=== PATIENT | female | born 1945 | race Caucasian/White ===

== ENCOUNTER 2018-01-31 07:54 | Inpatient (IN) | payer OTHER, MEDICARE ==
--- NOTE | 2018-01-31 08:01 | PDOC ---
History of Present Illness - General Stated Complaint: Syncope/Near Syncope Time Seen by Provider: 01/31/18 08:00 - History of Present Illness Initial Comments: 72 year old female with PMH of HTN, CVA (residual slowed speech), HLD, and COPD presenting after syncopizing on her bathroom floor this AM. She states that she felt slightly light headed while using the bathroom this AM which was exacerbated when she sat up from the toilet. She took a few steps then felt extremely weak and fell to the floor. She is unsure if she hit her head but denies any headache. She does have bilateral lower extremity weakness for the past year. Denies any recent fevers, chills, nause,a vomitign, diarrhea, or other symptoms. 01/31/18 08:02 Past History - Past Medical History Allergies/Adverse Reactions: Allergies Allergy/AdvReac Type Severity Reaction Status Date / Time No Known Allergies Allergy Verified 01/31/18 08:24 Home Medications: Ambulatory Orders Albuterol Sulfate Inhaler - [Ventolin Hfa Inhaler -] 1 - 2 inh PO QID 01/31/18 Atorvastatin Ca [Lipitor] 20 mg PO HS 01/31/18 Cholecalciferol (Vitamin D3) [Vitamin D3] 1,000 unit PO DAILY 01/31/18 Fluticasone Prop 0.05% Nasal [Flonase -] 1 - 2 spray NS DAILY 01/31/18 Gabapentin [Neurontin -] 100 mg PO Q8H 01/31/18 Metoprolol Tartrate 25 mg PO DAILY 01/31/18 Multivit-Min/FA/Lycopen/Lutein [Centrum Silver Tablet] 1 each PO DAILY 01/31/18 Ranitidine HCl [Zantac] 300 mg PO BID 01/31/18 Review of Systems - Review of Systems Constitutional: No: Chills, Diaphoresis, Fever HEENTM: No: Eye Pain, Blurred Vision, Tearing Respiratory: No: Cough, Orthopnea, Shortness of Breath Cardiac (ROS): Yes: Lightheadedness, Syncope. No: Chest Pain, Edema ABD/GI: No: Constipated, Diarrhea, Nausea, Poor Appetite, Vomiting : No: Burning, Dysuria, Discharge Musculoskeletal: Yes: Back Pain. No: Joint Pain Integumentary: No: Dryness, Erythema, Lesions Neurological: No: Headache, Numbness, Paresthesia Psychiatric: No: Anxiety, Depression Endocrine: No: Flushing, Intolerance to Cold, Intolerance to Heat Hematologic/Lymphatic: No: Anemia, Blood Clots, Easy Bleeding *Physical Exam - Physical Exam General Appearance: Yes: Nourished, Appropriately Dressed. No: Apparent Distress HEENT: positive: EOMI, NANCY, Normal ENT Inspection. negative: Normal Voice ( delayed speech) Neck: positive: Trachea midline, Normal Thyroid, Supple. negative: Tender, Rigid Respiratory/Chest: positive: Lungs Clear, Normal Breath Sounds. negative: Chest Tender, Respiratory Distress, Accessory Muscle Use Cardiovascular: positive: Regular Rhythm, Regular Rate Gastrointestinal/Abdominal: positive: Normal Bowel Sounds, Flat. negative: Tender Lymphatic: negative: Adenopathy, Tenderness Musculoskeletal: positive: Normal Inspection, Vertebral Tenderness (sacral spine tenderness). negative: Decreased Range of Motion Extremity: positive: Normal Capillary Refill, Normal Inspection, Normal Range of Motion. negative: Tender Integumentary: positive: Normal Color, Dry, Warm Neurologic: positive: Fully Oriented, Alert, Normal Mood/Affect, Normal Response. negative: Motor Strength 5/5 (4/5 globally) ED Treatment Course - LABORATORY CBC & Chemistry Diagram: 01/31/18 08:37 01/31/18 08:37 Medical Decision Making - Medical Decision Making 72 year old female with PMH of CVA presenting after an episode of syncope this AM with prodrome of weakness and lightheadedness. Labs WNL, Head CT negative, no focal neurological deficit, and EKG demonstrating rate 93, IN interval 188, QRS 86, QTc 489, normal axis lafb without any prior to compare it to but no ST elevations, signs of brugada, or concerningly lengthened QTc. 01/31/18 09:15 Labs WNL, head CT pending but call placed to Dr. Perkins and he agrees the patient should be admitted for an observational syncope workup. Dr. Hoover signed out patient to hospitalist for further workup. 01/31/18 09:59 *DC/Admit/Observation/Transfer Diagnosis at time of Disposition: Syncope and collapse - Discharge Dispostion Decision to Admit order: Yes - Referrals - Patient Instructions - Post Discharge Activity
[2018-01-31 08:24] VITALS: BMI 28.3
[2018-01-31] MEDS ORDERED: SODIUM CHLORIDE 0.9% 500 ML INFUS.BAG IV ONE (08:32)
[2018-01-31 08:45] LABS: BASO % 0.2 % (0-2.0); EOS % 0.6 % (0-4.5); HEMATOCRIT 40.5 % (32.4-45.2); HEMOGLOBIN 14.3 GM/dL (10.7-15.3); LYMPH % 13.9 % (8-40); MCH 31.9 pg (25.7-33.7); MCHC 35.3 g/dl (32.0-36.0); MEAN CELL VOLUME 90.4 fl (80-96); MEAN PLT VOLUME 8.6 fl (7.5-11.1); MONO % 8.8 % (3.8-10.2); NEUT % 76.5 % (42.8-82.8); PLATELET COUNT 244 K/MM3 (134-434); RBC 4.49 M/mm3 (3.60-5.2); RDW 13.4 % (11.6-15.6); WHITE BLOOD COUNT 8.7 K/mm3 (4.0-10.0)
[2018-01-31 09:16] LABS: ALBUMIN 4.2 g/dl (3.4-5.0); ALK PHOS 86 U/L (45-117); ANION GAP 11 MMOL/L (8-16); BILIRUBIN,TOTAL 0.9 mg/dL (0.2-1); BLOOD UREA NITROGEN 13 mg/dL (7-18); CALCIUM 9.2 mg/dL (8.5-10.1); CHLORIDE 104 mmol/L (98-107); CO2 23 mmol/L (21-32); CREATININE 0.7 mg/dL (0.55-1.3); GLUCOSE,RANDOM 103 mg/dL (74-106); MAGNESIUM 1.9 mg/dL (1.8-2.4); PHOSPHOROUS 2.4 mg/dL (2.5-4.9); POTASSIUM 3.8 mmol/L (3.5-5.1); SGOT/AST 26 U/L (15-37); SGPT/ALT 44 U/L (13-61); SODIUM 138 mmol/L (136-145)
[2018-01-31 09:31] LABS: INR 1.13 (0.83-1.09); PROTHROMBIN TIME (PATIENT) 13.3 SEC (9.7-13.0)
--- NOTE | 2018-01-31 10:01 | PDOC ---
Attending Attestation - Resident Resident Name: Kiersten Rodriguez - ED Attending Attestation I have performed the following: I have examined & evaluated the patient, The case was reviewed & discussed with the resident, I agree w/resident's findings & plan - HPI HPI: 01/31/18 09:59 [place] 72 year old female with PMH of HTN, HLD, GERD, CVA (residual slowed speech and LE weakness), presenting after waking up on the floor of her bathroom this AM, where she felt lightheadedness while going to the bathroom on the toilet. + LOC, syncope. no cp or sob, f/c, respiratory or GI sx or urinary sx. - Physicial Exam PE: 01/31/18 09:58 NAD, well appearing, PERRL, EOMI, MMM, nl conjunctiva, anicteric; neck supple. no midline C spine tenderness, ROM intact. lungs clear, RRR, abdomen soft nontender. +sacral TTP, no stepoffs. ROM intact. JONES x4, no focal neuro deficits. 5/5 digital field service technician and prox/distal strength in all extrem, SILT. +chronic dysarthria. No peripheral edema. normal color for ethnicity, WWP. no calf tenderness - Medical Decision Making 01/31/18 10:00 See HPI for details DDx syncope: infection, UTI, metabolic/electrolyte derangement, encephalopathy, dehydration, CVA, ACS, arrhythmia, RISK CONTROL REPRESENTATIVE pathology, head bleed/SDH/SAH, C spine injury. syncope, cardiogenic vs neurogenic. Vital signs reviewed, wnl. mild tachy in low 100s, but nontoxic appearing, NAD. Prior notes reviewed, including admissions, discharges and consultations. laboratory results and imaging reviewed, basic labs and lytes wnl, normal coags. UA_pending to r/o UTI CXR_negative. lumbar sacral XR with arthritic changes, no fx. Cardiac panel_neg trop EKG normal sinus rhythm, no interval abnormalities, narrow QRS, ST and T wave segments and morphology normal. Nonspecific T wave abnormalities ED course: no acute events. CT head and C spine neg for injuries/bleed or CVA. CT head and c spine neg for injuries, no bleed or CVA. Dispo: Admit for syncope. Discussed results and management plan with pt and family member at bedside, agree with impression and plan spoke to PMD, but admit to hospitalist team. 01/31/18 12:44 Heart Score/ECG Review - ECG Impressions Normal ECG: Yes Comment:: 01/31/18 10:01 EKG normal sinus rhythm, no interval abnormalities, narrow QRS, ST and T wave segments and morphology normal. Nonspecific T wave abnormalities
--- NOTE | 2018-01-31 10:11 | EKG ---
Test Reason : Blood Pressure : / mmHG Vent. Rate : 093 BPM Atrial Rate : 093 BPM P-R Int : 188 ms QRS Dur : 086 ms QT Int : 394 ms P-R-T Axes : 053 -60 063 degrees QTc Int : 489 ms NORMAL SINUS RHYTHM LEFT ANTERIOR FASCICULAR BLOCK ABNORMAL ECG NO PREVIOUS ECGS AVAILABLE Confirmed by ROMEL JOHNSON MD ([id number]) on 01/31/2018 10:11:10 AM Referred By: Confirmed By:ROMEL JOHNSON MD
[2018-01-31 12:30] LABS: URINE APPEARANCE CLEAR; URINE BILIRUBIN NEGATIVE (<2.0 mg/dL); URINE COLOR LTYELLOW; URINE GLUCOSE (UA) NEGATIVE (NEGATIVE); URINE KETONE NEGATIVE (NEGATIVE); URINE LEUK ESTERASE NEGATIVE (NEGATIVE); URINE NITRITE NEGATIVE (NEGATIVE); URINE PROTEIN NEGATIVE (NEGATIVE); URINE UROBILINOGEN NEGATIVE mg/dL (0.2-1.0)
--- NOTE | 2018-01-31 12:36 | HP ---
CHIEF COMPLAINT: syncope with fall PCP: Dr. Perkins (PCP) HISTORY OF PRESENT ILLNESS: Patient is a 72 year old female with a significant past medical history of hypertension, hyperlipidemia, 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 She denies any other history. She presents to the ED today with a syncope and collapse in her home while using the bathroom this morning. Patient reports at approximately 0130 today she went to use the bathroom today to urinate. She felt lightheaded and "broke out into a sweat" and woke up on the bathroom floor. She crawled back to her bedroom and managed to get into her bed. At 0430 a.m., she again went to use the bathroom but started again to feel dizzy and went back to her bedroom immediately, she called her daughter and was brought into the ED. Patient states she has bilateral lower extremity weakness for the past year. She denies fevers, chills, nausea vomiting, diarrhea, or other symptoms. ER course was notable for: (1) lumbar spine xray - no evidence of deformity (2) head ct, no evidence of ICH (3) trop negative x 1, trend 2 more (4) ekg nsr left anterior fas block Recent Travel: none PAST MEDICAL HISTORY: hypertension, hyperlipidemia, CVA with residual slow speech and lower ext weakness Social History: Smoking: denies Alcohol: denies Drugs: denies Family History: Allergies No Known Allergies Allergy (Verified 01/31/18 08:24) HOME MEDICATIONS: Home Medications Medication Instructions Recorded Albuterol Sulfate Inhaler - 1 - 2 inh PO QID 01/31/18 [Ventolin Hfa Inhaler -] Atorvastatin Ca [Lipitor] 20 mg PO HS 01/31/18 Cholecalciferol (Vitamin D3) 1,000 unit PO DAILY 01/31/18 [Vitamin D3] Fluticasone Prop 0.05% Nasal 1 - 2 spray NS DAILY 01/31/18 [Flonase -] Gabapentin [Neurontin -] 100 mg PO Q8H 01/31/18 Metoprolol Tartrate 25 mg PO DAILY 01/31/18 Multivit-Min/FA/Lycopen/Lutein 1 each PO DAILY 01/31/18 [Centrum Silver Tablet] Ranitidine HCl [Zantac] 300 mg PO BID 01/31/18 PHYSICAL EXAMINATION Vital Signs - 24 hr 01/31/18 08:18 Temperature 97.9 F Pulse Rate 101 H Respiratory 16 Rate Blood Pressure 165/89 O2 Sat by Pulse 100 Oximetry (%) GENERAL: Awake, alert and fully oriented, in no acute distress. slow speech. HEAD: Normal with no signs of trauma. EYES: Pupils equal, round and reactive to light EARS, NOSE, THROAT: Ears normal, nares patent, oropharynx clear without exudates. Moist mucous membranes. NECK: Normal range of motion, supple without lymphadenopathy, JVD, or masses. LUNGS: Breath sounds equal, clear to auscultation bilaterally HEART: Regular rate and rhythm, no chest pain, no shortness of breath ABDOMEN: Soft, nontender, not distended, normoactive bowel sounds MUSCULOSKELETAL: No bony deformities or tenderness. No CVA tenderness. UPPER EXTREMITIES: No peripheral edema. LOWER EXTREMITIES: No peripheral edema. reports lower ext weakness NEUROLOGICAL: slow, slightly slurred speech, but mostly clear PSYCHIATRIC: Cooperative. Good eye contact. Appropriate mood and affect. SKIN: Warm, dry, normal turgor, no rashes or lesions noted, normal capillary refill. Laboratory Results - last 24 hr 01/31/18 01/31/18 01/31/18 08:37 08:37 08:37 WBC 8.7 RBC 4.49 Hgb 14.3 Hct 40.5 MCV 90.4 MCH 31.9 MCHC 35.3 RDW 13.4 Plt Count 244 MPV 8.6 Absolute Neuts (auto) 6.6 Neutrophils % 76.5 Lymphocytes % 13.9 Monocytes % 8.8 Eosinophils % 0.6 Basophils % 0.2 Nucleated RBC % 0 PT with INR 13.30 H INR 1.13 H Sodium 138 Potassium 3.8 Chloride 104 Carbon Dioxide 23 Anion Gap 11 BUN 13 Creatinine 0.7 Creat Clearance w eGFR > 60 Random Glucose 103 Calcium 9.2 Phosphorus 2.4 L Magnesium 1.9 Total Bilirubin 0.9 AST 26 ALT 44 Alkaline Phosphatase 86 Troponin I < 0.02 Total Protein 7.0 Albumin 4.2 Urine Color Urine Appearance Urine pH Ur Specific [place] Urine Protein Urine Glucose (UA) Urine Ketones Urine Blood Urine Nitrite Urine Bilirubin Urine Urobilinogen Ur Leukocyte Esterase 01/31/18 12:00 WBC RBC Hgb Hct MCV MCH MCHC RDW Plt Count MPV Absolute Neuts (auto) Neutrophils % Lymphocytes % Monocytes % Eosinophils % Basophils % Nucleated RBC % PT with INR INR Sodium Potassium Chloride Carbon Dioxide Anion Gap BUN Creatinine Creat Clearance w eGFR Random Glucose Calcium Phosphorus Magnesium Total Bilirubin AST ALT Alkaline Phosphatase Troponin I Total Protein Albumin Urine Color Ltyellow Urine Appearance Clear Urine pH 7.0 Ur Specific [place] 1.009 L Urine Protein Negative Urine Glucose (UA) Negative Urine Ketones Negative Urine Blood Negative Urine Nitrite Negative Urine Bilirubin Negative Urine Urobilinogen Negative Ur Leukocyte Esterase Negative ASSESSMENT/PLAN: Patient is a 72 year old female with a significant past medical history of hypertension, hyperlipidemia, 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 She denies any other history. She presents to the ED today with a syncope and collapse in her home while using the bathroom this morning. Neuro: Syncope and collapse Weakness Rule out vasovagal response Rule out orthostatic component Will monitor on tele and initiate syncope workup. Head CT negative. mentation at baseline. Patient easily recalled all her home medications and recalls the events that led her to the hospital. No facial droop. Has chronic bilateral lower extremity weakness. Her daughter states that her speech is at baseline. am concerned that she may have had either a drop in her blood pressure and /or a vasovagal event. she was also in the bathroom floor for a few hours?. will order -CPK -orthostatics q4 -khan culture for possible infection (ua, uc, blood cultures) -physical therapy -carotid doppler -echo -lipid panel -hmga1c -tele monitoring -tsh Neuro consulted. will hold patient's gabaentin as it may also cause dizziness and patient reports she takes this medication at night. Will hold off until neuro evaluates. Card: Syncope, not short of breath or chest pain but will r/o ACS trend trops ekg daily monitor on tele echo ordered fen tolerating PO monitor electrolytes daily low salt diet physical therapy bowel regimen full code Visit type - Emergency Visit Emergency Visit: Yes ED Registration Date: 01/31/18 Care time: The patient presented to the Emergency Department on the above date and was hospitalized for further evaluation of their emergent condition. - New Patient This patient is new to me today: Yes Date on this admission: 01/31/18 - Critical Care Critical Care patient: No
[2018-01-31] MEDS ORDERED: METOPROLOL TARTRATE 25 MG TABLET (FP) PO ONE (13:34)
[2018-01-31] MEDS ORDERED: ALBUTEROL SO4 2.5/IPRATROPIUM 0.5 INH SOL 3 ML VIAL.NEB. NEB PRN (13:34)
[2018-01-31] MEDS: ACETAMINOPHEN 325 MG TABLET (FP) PO PRN (16:04)
--- NOTE | 2018-01-31 20:59 | CONSULT ---
Consult - text type - Consultation Consultation Note: NEUROLOGY CONSULTATION is greatly appreciated: This 72 yo RH recently woman lives alone. PMH sig for HTN, Chol, GERD,bronchitis and "slow speech due to stroke." Now on: Albuterol; Atorvastatin; Gabapentin 100 mg Q8H; Metoprolol; and Ranitidine. Seen by me 01/16 for vertigo and chronic nocturnal pains, cramps, paresthesiae, tightness and crawling sensations c/w RLS and responsive to Pramipexole. The patient had complaints of neck pain at that time with some radiation to the right arm (these complaints persist) and some unsteadiness with wide-based gait but had no dysarthria or speech changes. Now admitted after fainting. See got up to urinate at 1:30 AM and upon returning to her bedroom she became lightheaded and saw "everything go black." She awoke on the floor and called EMS. No head trauma. No headaches. No incontinence. CT of head (reviewed): Normal CT of C/ LS spines: Spondylytic changes but no fractures or dislocations ELGIN: No bruits. Cor reg. No external head trauma NEURO: Awake, alert. Ox 3. MS Normal Speech: Striking scanning dysarthria CN II-XII: + Nystagmus. Congenital left Ptosis. Decreased tongue ELKIN' s Motor: No drift. Normal strength. Brisk reflexes including AJ's. Toes downgoing. Coordination: No FTN dystaxia. Sensory: Normal. Romberg neg Gait: Wide based. shuffling. Unsteady turning. IMP: B/L cerebral dysfunction with B/L motor signs and Dysarthria (new since 2014). R/O Demyelinating disease. 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 Suggest: MRI of brain (C-) Check orthostatic BP's. PT for gait assessment and gait training with walker. Thank you very much, Timothy Cornejo MD
[2018-01-31] MEDS: DOCUSATE SODIUM 100 MG CAPSULE (FP) PO SCH (22:55)
[2018-01-31] MEDS: ATORVASTATIN CA 20 MG TABLET (FP) PO SCH (22:55)
[2018-02-01] MEDS: ACETAMINOPHEN 325 MG TABLET (FP) PO PRN ×2 (08:13→14:37)
--- NOTE | 2018-02-01 09:21 | CON.CARD ---
Consult Consult Specialty:: Cardiology Reason for Consultation:: syncope - History of Present Illness History of Present Illness: Patient is a 72 year old female with a significant past medical history of hypertension, hyperlipidemia, 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 She denies any other history. She presents to the ED today with a syncope and collapse in her home while using the bathroom this morning. Patient reports at approximately 0130 today she went to use the bathroom today to urinate. She felt lightheaded and "broke out into a sweat" and woke up on the bathroom floor. She crawled back to her bedroom and managed to get into her bed. At 0430 a.m., she again went to use the bathroom but started again to feel dizzy and went back to her bedroom immediately, she called her daughter and was brought into the ED. Patient states she has bilateral lower extremity weakness for the past year. She denies fevers, chills, nausea vomiting, diarrhea, or other symptoms. ER course was notable for: (1) lumbar spine xray - no evidence of deformity (2) head ct, no evidence of ICH (3) trop negative x 1, trend 2 more (4) ekg nsr left anterior fas block - History Source History Provided By: Patient, Medical Record - Past Medical History Cardio/Vascular: Yes: HTN, Hyperlipdemia - Alcohol/Substance Use Hx Alcohol Use: No - Smoking History Smoking history: Unknown if ever smoked Home Medications - Allergies Allergies/Adverse Reactions: Allergies Allergy/AdvReac Type Severity Reaction Status Date / Time No Known Allergies Allergy Verified 01/31/18 08:24 - Home Medications Home Medications: Ambulatory Orders Albuterol Sulfate Inhaler - [Ventolin Hfa Inhaler -] 1 - 2 inh PO QID 01/31/18 Atorvastatin Ca [Lipitor] 20 mg PO HS 01/31/18 Cholecalciferol (Vitamin D3) [Vitamin D3] 1,000 unit PO DAILY 01/31/18 Fluticasone Prop 0.05% Nasal [Flonase -] 1 - 2 spray NS DAILY 01/31/18 Gabapentin [Neurontin -] 100 mg PO Q8H 01/31/18 Metoprolol Tartrate 25 mg PO DAILY 01/31/18 Multivit-Min/FA/Lycopen/Lutein [Centrum Silver Tablet] 1 each PO DAILY 01/31/18 Ranitidine HCl [Zantac] 300 mg PO BID 01/31/18 Review of Systems - Review of Systems Constitutional: reports: No Symptoms Eyes: reports: No Symptoms HENT: reports: No Symptoms Neck: reports: No Symptoms Cardiovascular: reports: No Symptoms Gastrointestinal: reports: No Symptoms Genitourinary: reports: No Symptoms Breasts: reports: No Symptoms Reported Musculoskeletal: reports: No Symptoms Integumentary: reports: No Symptoms Neurological: reports: Change in Speech, Syncope Endocrine: reports: No Symptoms Hematology/Lymphatic: reports: No Symptoms Psychiatric: reports: No Symptoms Vital Signs: Vital Signs Temperature 97.7 F 02/01/18 08:31 Pulse Rate 87 02/01/18 08:31 Respiratory Rate 16 02/01/18 08:50 Blood Pressure 140/67 02/01/18 08:31 O2 Sat by Pulse Oximetry (%) 98 02/01/18 08:50 Constitutional: Yes: Well Nourished, No Distress, Calm Eyes: Yes: WNL, Conjunctiva Clear, EOM Intact HENT: Yes: WNL, Atraumatic, Normocephalic Neck: Yes: WNL, Supple, Trachea Midline Respiratory: Yes: WNL, Regular, CTA Bilaterally Gastrointestinal: Yes: WNL, Normal Bowel Sounds Renal/: Yes: WNL Cardiovascular: Yes: WNL, Regular Rate and Rhythm Musculoskeletal: Yes: WNL Extremities: Yes: WNL Integumentary: Yes: WNL Neurological: Yes: WNL, Alert, Oriented ...Motor Strength: WNL Psychiatric: Yes: WNL, Alert, Oriented - Other Data Labs, Other Data: CBC, BMP 01/31/18 08:37 01/31/18 08:37 INR, PTT INR 1.13 (0.83-1.09) H 01/31/18 08:37 Troponin, BNP 01/31/18 02/01/18 18:00 00:01 Troponin I < 0.02 < 0.02 Troponin, BNP 01/31/18 02/01/18 18:00 00:01 Troponin I < 0.02 < 0.02 Imaging - Results Chest X-ray: Image Reviewed (no i /e) EKG: Image Reviewed (sr lafb) Problem List - Problems (1) Syncope and collapse Code(s): R55 - SYNCOPE AND COLLAPSE Assessment/Plan micturition syncope cva dysarthria left anterior fascicular block Plan echo telemetry d/c metoprolol start amlodipine 5 qd neurology consult appreciated.
[2018-02-01 09:53] LABS: BASO % 0.9 % (0-2.0); EOS % 4.8 % (0-4.5); HEMATOCRIT 39.2 % (32.4-45.2); LYMPH % 31.7 % (8-40); MCH 30.4 pg (25.7-33.7); MCHC 33.1 g/dl (32.0-36.0); MEAN PLT VOLUME 8.8 fl (7.5-11.1); MONO % 11.7 % (3.8-10.2); NEUT % 50.9 % (42.8-82.8); PLATELET COUNT 221 K/MM3 (134-434); RBC 4.26 M/mm3 (3.60-5.2); RDW 13.8 % (11.6-15.6); WHITE BLOOD COUNT 6.7 K/mm3 (4.0-10.0)
[2018-02-01] MEDS ORDERED: METOPROLOL TARTRATE 25 MG TABLET (FP) PO SCH (10:00)
[2018-02-01 10:04] LABS: ALBUMIN 3.6 g/dl (3.4-5.0); ALK PHOS 75 U/L (45-117); ANION GAP 11 MMOL/L (8-16); BLOOD UREA NITROGEN 11 mg/dL (7-18); CALCIUM 8.6 mg/dL (8.5-10.1); CHLORIDE 107 mmol/L (98-107); CHOLESTEROL 144 mg/dL (50-200); CO2 23 mmol/L (21-32); CREATININE 0.6 mg/dL (0.55-1.3); GLUCOSE,RANDOM 86 mg/dL (74-106); HDL CHOLESTEROL 74 mg/dL (40-60); POTASSIUM 3.8 mmol/L (3.5-5.1); SGOT/AST 28 U/L (15-37); SGPT/ALT 37 U/L (13-61); SODIUM 141 mmol/L (136-145); TOT PROT 6.2 g/dl (6.4-8.2); TRIGLYCERIDES 60 mg/dL (0-150)
--- NOTE | 2018-02-01 10:10 | PN ---
Physical Exam: SUBJECTIVE: Patient seen and examined at the bedside. feels well today. in no acute distress. denies any dizziness, feeling lightheaded or any other malaise. eating well. OBJECTIVE: brain mri ordered by neurology and pending Vital Signs Period Temp Pulse Resp BP Sys/Mcwilliams Pulse Ox Last 24 Hr 97.5 F-97.8 F 73-117 16-18 123-140/67-82 98-100 GENERAL: Awake, alert and fully oriented, in no acute distress. slow speech. HEAD: Normal with no signs of trauma. EYES: Pupils equal, round and reactive to light EARS, NOSE, THROAT: Ears normal, nares patent, oropharynx clear without exudates. Moist mucous membranes. NECK: Normal range of motion, supple without lymphadenopathy, JVD, or masses. LUNGS: Breath sounds equal, clear to auscultation bilaterally HEART: Regular rate and rhythm, no chest pain, no shortness of breath ABDOMEN: Soft, nontender, not distended, normoactive bowel sounds MUSCULOSKELETAL: No bony deformities or tenderness. No CVA tenderness. UPPER EXTREMITIES: No peripheral edema. LOWER EXTREMITIES: No peripheral edema. reports lower ext weakness NEUROLOGICAL: slow, slightly slurred speech, but mostly clear PSYCHIATRIC: Cooperative. Good eye contact. Appropriate mood and affect. SKIN: Warm, dry, normal turgor, no rashes or lesions noted, normal capillary refill. Laboratory Results - last 24 hr 01/31/18 01/31/18 02/01/18 12:00 18:00 00:01 WBC RBC Hgb Hct MCV MCH MCHC RDW Plt Count MPV Absolute Neuts (auto) Neutrophils % Lymphocytes % Monocytes % Eosinophils % Basophils % Nucleated RBC % Sodium Potassium Chloride Carbon Dioxide Anion Gap BUN Creatinine Creat Clearance w eGFR Random Glucose Calcium Phosphorus Magnesium Total Bilirubin AST ALT Alkaline Phosphatase Creatine Kinase Creatine Kinase Index CK-MB (CK-2) Troponin I < 0.02 < 0.02 Total Protein Albumin Triglycerides Cholesterol Total LDL Cholesterol HDL Cholesterol TSH Urine Color Ltyellow Urine Appearance Clear Urine pH 7.0 Ur Specific [place] 1.009 L Urine Protein Negative Urine Glucose (UA) Negative Urine Ketones Negative Urine Blood Negative Urine Nitrite Negative Urine Bilirubin Negative Urine Urobilinogen Negative Ur Leukocyte Esterase Negative 02/01/18 02/01/18 05:30 05:30 WBC 6.7 RBC 4.26 Hgb 13.0 Hct 39.2 MCV 92.0 MCH 30.4 MCHC 33.1 RDW 13.8 Plt Count 221 MPV 8.8 Absolute Neuts (auto) 3.4 Neutrophils % 50.9 D Lymphocytes % 31.7 D Monocytes % 11.7 H Eosinophils % 4.8 H D Basophils % 0.9 D Nucleated RBC % 0 Sodium 141 Potassium 3.8 Chloride 107 Carbon Dioxide 23 Anion Gap 11 BUN 11 Creatinine 0.6 Creat Clearance w eGFR > 60 Random Glucose 86 Calcium 8.6 Phosphorus 4.0 Magnesium 2.0 Total Bilirubin 1.0 AST 28 ALT 37 Alkaline Phosphatase 75 Creatine Kinase 215 H Creatine Kinase Index 1.0 CK-MB (CK-2) 2.3 Troponin I Total Protein 6.2 L Albumin 3.6 Triglycerides 60 Cholesterol 144 Total LDL Cholesterol 63 HDL Cholesterol 74 H TSH 2.24 Urine Color Urine Appearance Urine pH Ur Specific [place] Urine Protein Urine Glucose (UA) Urine Ketones Urine Blood Urine Nitrite Urine Bilirubin Urine Urobilinogen Ur Leukocyte Esterase Active Medications Generic Name Dose Route Start Last Admin Trade Name Freq PRN Reason Stop Dose Admin Acetaminophen 650 mg 01/31/18 13:56 02/01/18 08:13 Tylenol - PO 650 mg Q6H PRN Administration PAIN LEVEL 7 - 10 Albuterol/Ipratropium 1 amp 01/31/18 13:34 Duoneb - NEB Q6H PRN SHORTNESS OF BREATH Amlodipine Besylate 5 mg 02/01/18 10:00 Norvasc - PO DAILY [facility] Atorvastatin Calcium 20 mg 01/31/18 22:00 01/31/18 22:55 Lipitor - PO 20 mg HS [facility] Administration Cholecalciferol 1,000 unit 02/01/18 10:00 Vitamin D3 - PO DAILY [facility] Docusate Sodium 100 mg 01/31/18 22:00 01/31/18 22:55 Colace - PO 100 mg BID [facility] Administration Fluticasone Propionate 1 - 2 spray 02/01/18 10:00 Flonase - NS DAILY [facility] Lidocaine 1 patch 02/01/18 10:00 Lidoderm Patch - TP DAILY [facility] Miscellaneous 1 each 02/01/18 22:00 Lidoderm Patch Removal MC DAILY@2200 [facility] ASSESSMENT/PLAN: Patient is a 72 year old female with a significant past medical history of hypertension, hyperlipidemia, 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 She denies any other history. She presents to the ED today with a syncope and collapse in her home while using the bathroom. Neuro: Syncope and collapse/Weakness/Rule out vasovagal response/Rule out orthostatic component monitor on tele. Head CT negative. mentation at baseline. Patient easily recalled all her home medications and recalls the events that led her to the hospital. No facial droop. Has chronic bilateral lower extremity weakness. family states that her slow speech is at baseline. orthostatics negative thus far. will continue to monitor. May have been a possible vasovagal event that led her to her symptoms. CPK mildly elevated, bun/creat stable. will continue to trend cpk. Blood cultures pending no fevers. WBC stable. no signs of infection. Physical therapy ordered. Carotid doppler completed, awaiting official read. Echo ordered and pending. Mildly elevated HDL, on lipitor not diabetic based on hmga1c continue telemonitoring TSH stable Neuro recommendations appreciated. Awaiting brain MRI. Card: Syncope, not short of breath or chest pain Troponins negative x 3 monitor on tele echo ordered, pending. Hypertension. controlled. metoprolol stopped by cardiology. on amlodopine. fen tolerating PO monitor electrolytes daily low salt diet physical therapy bowel regimen full code disposition. continue to monitor in observation. awaiting echo and brain mri before deciding on discharge. Visit type - Emergency Visit Emergency Visit: Yes ED Registration Date: 01/31/18 Care time: The patient presented to the Emergency Department on the above date and was hospitalized for further evaluation of their emergent condition. - New Patient This patient is new to me today: No - Critical Care Critical Care patient: No - Discharge Referral Referred to [facility] No
[2018-02-01] MEDS: DOCUSATE SODIUM 100 MG CAPSULE (FP) PO SCH ×2 (10:41→22:21)
[2018-02-01] MEDS: CHOLECALCIFEROL (VITAMIN D3) 1,000 UNIT TABLET (FP) PO SCH (10:41)
[2018-02-01] MEDS: amLODIPine BESYLATE 5 MG TABLET (FP) PO SCH (10:42)
[2018-02-01] MEDS: LIDOCAINE 5% TOPICAL PATCH TP SCH (10:42)
[2018-02-01] MEDS: FLUTICASONE PROP 0.05% 16 GM NASAL SPRAY NS SCH (15:08)
[2018-02-01] MEDS ORDERED: IBUPROFEN 600 MG TABLET (FP) PO ONE (18:17)
[2018-02-01] MEDS: ATORVASTATIN CA 20 MG TABLET (FP) PO SCH (22:21)
[2018-02-01] MEDS: LIDOCAINE PATCH REMOVAL MC SCH (22:21)
[2018-02-02] MEDS: LIDOCAINE 5% TOPICAL PATCH TP SCH (09:15)
[2018-02-02] MEDS: FLUTICASONE PROP 0.05% 16 GM NASAL SPRAY NS SCH (09:16)
[2018-02-02] MEDS: amLODIPine BESYLATE 5 MG TABLET (FP) PO SCH (09:16)
[2018-02-02] MEDS: DOCUSATE SODIUM 100 MG CAPSULE (FP) PO SCH ×2 (09:16→21:27)
[2018-02-02] MEDS: CHOLECALCIFEROL (VITAMIN D3) 1,000 UNIT TABLET (FP) PO SCH (09:16)
[2018-02-02] MEDS: IBUPROFEN 200 MG TABLET PO PRN ×2 (09:17→17:14)
--- NOTE | 2018-02-02 09:23 | PN ---
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 She denies any other history. She presents to the ED today with a syncope and collapse in her home while using the bathroom this morning. Patient reports at approximately 0130 today she went to use the bathroom today to urinate. She felt lightheaded and "broke out into a sweat" and woke up on the bathroom floor. She crawled back to her bedroom and managed to get into her bed. At 0430 a.m., she again went to use the bathroom but started again to feel dizzy and went back to her bedroom immediately, she called her daughter and was brought into the ED. Patient states she has bilateral lower extremity weakness for the past year. She denies fevers, chills, nausea vomiting, diarrhea, or other symptoms. ER course was notable for: (1) lumbar spine xray - no evidence of deformity (2) head ct, no evidence of ICH (3) trop negative x 1, trend 2 more (4) ekg nsr left anterior fas block - Current Medication List Current Medications: Active Medications Acetaminophen (Tylenol -) 650 mg PO Q6H PRN PRN Reason: PAIN LEVEL 7 - 10 Last Admin: 02/01/18 14:37 Dose: 650 mg Albuterol/Ipratropium (Duoneb -) 1 amp NEB Q6H PRN PRN Reason: SHORTNESS OF BREATH Amlodipine Besylate (Norvasc -) 5 mg PO DAILY [facility] Last Admin: 02/02/18 09:16 Dose: 5 mg Atorvastatin Calcium (Lipitor -) 20 mg PO HS [facility] Last Admin: 02/01/18 22:21 Dose: 20 mg Cholecalciferol (Vitamin D3 -) 1,000 unit PO DAILY [facility] Last Admin: 02/02/18 09:16 Dose: 1,000 unit Docusate Sodium (Colace -) 100 mg PO BID [facility] Last Admin: 02/02/18 09:16 Dose: 100 mg Fluticasone Propionate (Flonase -) 1 - 2 spray NS DAILY [facility] Last Admin: 02/02/18 09:16 Dose: 2 sprays Ibuprofen (Advil -) 200 mg PO Q6H PRN PRN Reason: PAIN LEVEL 4 - 6 Last Admin: 02/02/18 09:17 Dose: 200 mg Lidocaine (Lidoderm Patch -) 1 patch TP DAILY [facility] Last Admin: 02/02/18 09:15 Dose: 1 patch Miscellaneous (Lidoderm Patch Removal) 1 each MC DAILY@2200 [facility] Last Admin: 02/01/18 22:21 Dose: 1 each - Objective Vital Signs: Vital Signs Temperature 97.9 F 02/02/18 08:31 Pulse Rate 75 02/02/18 08:31 Respiratory Rate 18 02/02/18 08:31 Blood Pressure 122/70 02/02/18 08:31 O2 Sat by Pulse Oximetry (%) 99 02/02/18 08:29 Eyes: Yes: WNL, Conjunctiva Clear, EOM Intact HENT: Yes: WNL, Atraumatic, Normocephalic Neck: Yes: WNL, Supple, Trachea Midline Cardiovascular: Yes: WNL, Regular Rate and Rhythm Respiratory: Yes: WNL, Regular, CTA Bilaterally Gastrointestinal: Yes: WNL, Normal Bowel Sounds Genitourinary: Yes: WNL Musculoskeletal: Yes: WNL Extremities: Yes: WNL Edema: No Integumentary: Yes: WNL Neurological: Yes: Alert, Oriented, Dysarthria ...Motor Strength: WNL Psychiatric: Yes: WNL Labs: CBC, BMP 02/01/18 05:30 02/01/18 05:30 INR, PTT INR 1.13 (0.83-1.09) H 01/31/18 08:37 Problem List - Problems (1) Syncope and collapse Code(s): R55 - SYNCOPE AND COLLAPSE Assessment/Plan micturition syncope cva dysarthria left anterior fascicular block bp stable on amlodipine 5 qd Plan echo telemetry d/c metoprolol neurology consult appreciated.
--- NOTE | 2018-02-02 10:29 | PN ---
Physical Exam: SUBJECTIVE: Patient seen and examined at the bedside. feels well, reports no difficulty with ambulation but per physical therapy notes , patient only walked 20 feet which was poorly tolerated. She was also reported to have weakness, imbalance, dizziness and limited endurance. She is a safety risk with a recent syncopal episode. Will not be discharged today. SW to be notified for possible STR. Please repeat PT evaluation tomorrow. OBJECTIVE: Vital Signs Period Temp Pulse Resp BP Sys/Mcwilliams Pulse Ox Last 24 Hr 97.3 F-98.3 F 75-90 17-18 116-142/65-85 98-99 GENERAL: Awake, alert and fully oriented, in no acute distress. slow speech ( baseline) HEAD: Normal with no signs of trauma. EYES: Pupils equal, round and reactive to light EARS, NOSE, THROAT: Ears normal, nares patent, oropharynx clear without exudates. Moist mucous membranes. NECK: Normal range of motion, supple without lymphadenopathy, JVD, or masses. LUNGS: Breath sounds equal, clear to auscultation bilaterally HEART: Regular rate and rhythm, no chest pain, no shortness of breath ABDOMEN: Soft, nontender, not distended, normoactive bowel sounds MUSCULOSKELETAL: No bony deformities or tenderness. No CVA tenderness. UPPER EXTREMITIES: No peripheral edema. LOWER EXTREMITIES: No peripheral edema. reports lower ext weakness NEUROLOGICAL: slow, slightly slurred speech, but mostly clear PSYCHIATRIC: Cooperative. Good eye contact. Appropriate mood and affect. SKIN: Warm, dry, normal turgor, no rashes or lesions noted, normal capillary refill. Laboratory Results - last 24 hr 02/01/18 05:30 Hemoglobin A1c % 5.4 Active Medications Generic Name Dose Route Start Last Admin Trade Name Freq PRN Reason Stop Dose Admin Acetaminophen 650 mg 01/31/18 13:56 02/01/18 14:37 Tylenol - PO 650 mg Q6H PRN Administration PAIN LEVEL 7 - 10 Albuterol/Ipratropium 1 amp 01/31/18 13:34 Duoneb - NEB Q6H PRN SHORTNESS OF BREATH Amlodipine Besylate 5 mg 02/01/18 10:00 02/02/18 09:16 Norvasc - PO 5 mg DAILY [facility] Administration Atorvastatin Calcium 20 mg 01/31/18 22:00 02/01/18 22:21 Lipitor - PO 20 mg HS [facility] Administration Cholecalciferol 1,000 unit 02/01/18 10:00 02/02/18 09:16 Vitamin D3 - PO 1,000 unit DAILY [facility] Administration Docusate Sodium 100 mg 01/31/18 22:00 02/02/18 09:16 Colace - PO 100 mg BID [facility] Administration Fluticasone Propionate 1 - 2 spray 02/01/18 10:00 02/02/18 09:16 Flonase - NS 2 sprays DAILY [facility] Administration Ibuprofen 200 mg 02/01/18 20:37 02/02/18 09:17 Advil - PO 200 mg Q6H PRN Administration PAIN LEVEL 4 - 6 Lidocaine 1 patch 02/01/18 10:00 02/02/18 09:15 Lidoderm Patch - TP 1 patch DAILY [facility] Administration Miscellaneous 1 each 02/01/18 22:00 02/01/18 22:21 Lidoderm Patch Removal MC 1 each DAILY@2200 [facility] Administration ASSESSMENT/PLAN: Patient is a 72 year old female with a significant past medical history of hypertension, hyperlipidemia, 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 She denies any other history. She presents to the ED today with a syncope and collapse in her home while using the bathroom. Neuro: Syncope and collapse/Weakness/Rule out vasovagal response/Rule out orthostatic component monitor on tele. Head CT negative. mentation at baseline. Patient easily recalled all her home medications and recalls the events that led her to the hospital. No facial droop. Has chronic bilateral lower extremity weakness. family states that her slow speech is at baseline. orthostatics negative. will continue to monitor. May have been a possible vasovagal event that led her to her symptoms. CPK mildly elevated, bun/creat stable. Blood cultures negative, no fevers. WBC stable. no signs of infection. Physical therapy notes reviewed, pt only ambulated 20feet with limited endurance. repeat PT tomorrow and assess for possible STR. Carotid doppler completed, awaiting official read. Brain MRI done today,pending read. Echo ordered Mildly elevated HLD, on lipitor not diabetic based on hmga1c continue telemonitoring TSH stable Neuro recommendations appreciated. Awaiting brain MRI. Card: Syncope, not short of breath or chest pain Troponins negative x 3 monitor on tele echo ordered, pending. Hypertension. controlled. metoprolol stopped by cardiology. on amlodopine. fen tolerating PO monitor electrolytes daily low salt diet physical therapy bowel regimen full code disposition. continue to monitor patient. Patient awaiting (1) echo (2) PT to reassess and (3) official reading of brain mri and carotid doppler. Visit type - Emergency Visit Emergency Visit: Yes ED Registration Date: 01/31/18 Care time: The patient presented to the Emergency Department on the above date and was hospitalized for further evaluation of their emergent condition. - New Patient This patient is new to me today: No - Critical Care Critical Care patient: No - Discharge Referral Referred to [facility] Med P.C.: No
[2018-02-02] MEDS: ATORVASTATIN CA 20 MG TABLET (FP) PO SCH (21:27)
[2018-02-02] MEDS: LIDOCAINE PATCH REMOVAL MC SCH (21:44)
--- NOTE | 2018-02-03 07:43 | PN ---
Progress Note, Physician Chief Complaint: 72 y.o F was admitted for syncope evaluation. Symphony cover appreciated, cardiology not read, the pt had a micturition syncope. MRI, carotid Duplpplex noted. Dr Cornejo note in the chart from 2014 reviewed. Vital Signs (72 hours) 01/31/18 01/31/18 01/31/18 08:18 15:12 15:21 Temperature 97.9 F 97.7 F Pulse Rate 101 H 97 H Pulse Rate [ Left side Sitting] Pulse Rate [ Left side Standing] Pulse Rate [ Left side Supine] Respiratory 16 18 18 Rate Blood Pressure 165/89 139/77 Blood Pressure [Left side Sitting] Blood Pressure [Left side Standing] Blood Pressure [Left side Supine] O2 Sat by Pulse 100 100 Oximetry (%) 01/31/18 01/31/18 01/31/18 15:34 16:13 16:19 Temperature Pulse Rate 99 H Pulse Rate [ 117 H Left side Sitting] Pulse Rate [ 110 H Left side Standing] Pulse Rate [ 89 Left side Supine] Respiratory 18 Rate Blood Pressure Blood Pressure 130/73 [Left side Sitting] Blood Pressure 140/82 [Left side Standing] Blood Pressure 139/71 [Left side Supine] O2 Sat by Pulse 100 Oximetry (%) 01/31/18 01/31/18 02/01/18 20:35 21:00 02:00 Temperature 97.5 F L 97.8 F Pulse Rate 78 80 Pulse Rate [ Left side Sitting] Pulse Rate [ Left side Standing] Pulse Rate [ Left side Supine] Respiratory 18 18 Rate Blood Pressure 139/80 134/70 Blood Pressure [Left side Sitting] Blood Pressure [Left side Standing] Blood Pressure [Left side Supine] O2 Sat by Pulse 98 Oximetry (%) 02/01/18 02/01/18 02/01/18 06:00 08:31 08:50 Temperature 97.8 F 97.7 F Pulse Rate 73 87 Pulse Rate [ Left side Sitting] Pulse Rate [ Left side Standing] Pulse Rate [ Left side Supine] Respiratory 18 16 16 Rate Blood Pressure 123/73 140/67 Blood Pressure [Left side Sitting] Blood Pressure [Left side Standing] Blood Pressure [Left side Supine] O2 Sat by Pulse 98 Oximetry (%) 02/01/18 02/01/18 02/01/18 12:00 12:40 17:49 Temperature 97.9 F 98.3 F 97.3 F L Pulse Rate 82 87 85 Pulse Rate [ Left side Sitting] Pulse Rate [ Left side Standing] Pulse Rate [ Left side Supine] Respiratory 17 18 18 Rate Blood Pressure 136/72 142/85 133/73 Blood Pressure [Left side Sitting] Blood Pressure [Left side Standing] Blood Pressure [Left side Supine] O2 Sat by Pulse Oximetry (%) 02/01/18 02/01/18 02/02/18 20:40 21:00 01:00 Temperature 98.3 F 97.9 F Pulse Rate 76 80 Pulse Rate [ Left side Sitting] Pulse Rate [ Left side Standing] Pulse Rate [ Left side Supine] Respiratory 18 18 18 Rate Blood Pressure 132/72 116/65 Blood Pressure [Left side Sitting] Blood Pressure [Left side Standing] Blood Pressure [Left side Supine] O2 Sat by Pulse 98 Oximetry (%) 02/02/18 02/02/18 02/02/18 06:14 08:29 08:31 Temperature 97.6 F 97.9 F Pulse Rate 90 75 Pulse Rate [ Left side Sitting] Pulse Rate [ Left side Standing] Pulse Rate [ Left side Supine] Respiratory 18 18 18 Rate Blood Pressure 124/73 122/70 Blood Pressure [Left side Sitting] Blood Pressure [Left side Standing] Blood Pressure [Left side Supine] O2 Sat by Pulse 99 Oximetry (%) 02/02/18 02/02/18 02/02/18 13:43 14:42 18:10 Temperature 97.4 F L 97.7 F Pulse Rate 88 87 Pulse Rate [ 102 H Left side Sitting] Pulse Rate [ 119 H Left side Standing] Pulse Rate [ 91 H Left side Supine] Respiratory 18 18 Rate Blood Pressure 134/73 123/77 Blood Pressure 126/73 [Left side Sitting] Blood Pressure 115/86 [Left side Standing] Blood Pressure 124/68 [Left side Supine] O2 Sat by Pulse Oximetry (%) 02/02/18 02/02/18 02/03/18 21:00 22:00 01:05 Temperature 97.7 F 98.2 F Pulse Rate 78 77 Pulse Rate [ Left side Sitting] Pulse Rate [ Left side Standing] Pulse Rate [ Left side Supine] Respiratory 18 18 18 Rate Blood Pressure 131/71 112/61 Blood Pressure [Left side Sitting] Blood Pressure [Left side Standing] Blood Pressure [Left side Supine] O2 Sat by Pulse 99 Oximetry (%) 02/03/18 05:00 Temperature 97.8 F Pulse Rate 78 Pulse Rate [ Left side Sitting] Pulse Rate [ Left side Standing] Pulse Rate [ Left side Supine] Respiratory 18 Rate Blood Pressure 126/62 Blood Pressure [Left side Sitting] Blood Pressure [Left side Standing] Blood Pressure [Left side Supine] O2 Sat by Pulse Oximetry (%) Awake, alert GINA, Blepharospasm. Neck supple, no JVD, No bruits Lungs are clear Heart S1S2 regular Abdomen soft, NT Ext NO CCE Normal motor function Current Active Problems Problem Status Onset Syncope and collapse Acute Plan D/C Home F/u as outpt. . - Current Medication List Current Medications: Active Medications Acetaminophen (Tylenol -) 650 mg PO Q6H PRN PRN Reason: PAIN LEVEL 7 - 10 Last Admin: 02/01/18 14:37 Dose: 650 mg Albuterol/Ipratropium (Duoneb -) 1 amp NEB Q6H PRN PRN Reason: SHORTNESS OF BREATH Amlodipine Besylate (Norvasc -) 5 mg PO DAILY [facility] Last Admin: 02/02/18 09:16 Dose: 5 mg Atorvastatin Calcium (Lipitor -) 20 mg PO HS [facility] Last Admin: 02/02/18 21:27 Dose: 20 mg Cholecalciferol (Vitamin D3 -) 1,000 unit PO DAILY [facility] Last Admin: 02/02/18 09:16 Dose: 1,000 unit Docusate Sodium (Colace -) 100 mg PO BID [facility] Last Admin: 02/02/18 21:27 Dose: Not Given Fluticasone Propionate (Flonase -) 1 - 2 spray NS DAILY [facility] Last Admin: 02/02/18 09:16 Dose: 2 sprays Ibuprofen (Advil -) 200 mg PO Q6H PRN PRN Reason: PAIN LEVEL 4 - 6 Last Admin: 02/02/18 17:14 Dose: 200 mg Lidocaine (Lidoderm Patch -) 1 patch TP DAILY [facility] Last Admin: 02/02/18 09:15 Dose: 1 patch Miscellaneous (Lidoderm Patch Removal) 1 each MC DAILY@2200 [facility] Last Admin: 02/02/18 21:44 Dose: 1 each - Objective Vital Signs: Vital Signs Temperature 97.8 F 02/03/18 05:00 Pulse Rate 78 02/03/18 05:00 Respiratory Rate 18 02/03/18 05:00 Blood Pressure 126/62 02/03/18 05:00 O2 Sat by Pulse Oximetry (%) 99 02/02/18 21:00 Constitutional: Yes: Well Nourished, No Distress, Calm Eyes: Yes: Conjunctiva Clear, EOM Intact HENT: Yes: Atraumatic, Normocephalic Neck: Yes: Supple, Trachea Midline Respiratory: Yes: Regular, CTA Bilaterally Gastrointestinal: Yes: Normal Bowel Sounds, Soft. No: Abdomen, Obese ...Rectal Exam: Yes: Deferred Genitourinary: No: Anuria, Bladder Distention Breast(s): Yes: WNL Musculoskeletal: Yes: WNL Extremities: Yes: WNL Edema: No Integumentary: Yes: WNL ...Motor Strength: WNL Psychiatric: Yes: WNL Labs: CBC, BMP 02/01/18 05:30 02/01/18 05:30 INR, PTT INR 1.13 (0.83-1.09) H 01/31/18 08:37 Problem List - Problems (1) Syncope and collapse Assessment/Plan: Micturition syncope, f/u as outpt D/C Neurontin Code(s): R55 - SYNCOPE AND COLLAPSE (2) COPD (chronic obstructive pulmonary disease) Assessment/Plan: Continue nebs Code(s): J44.9 - CHRONIC OBSTRUCTIVE PULMONARY DISEASE, UNSPECIFIED Qualifiers: COPD type: emphysema (3) CVA (cerebrovascular accident) Assessment/Plan: Continue statins, follow BP Code(s): I63.9 - CEREBRAL INFARCTION, UNSPECIFIED Qualifiers: CVA mechanism: unspecified Qualified Code(s): I63.9 - Cerebral infarction, unspecified
--- NOTE | 2018-02-03 07:46 | DS ---
Physical Examination Vital Signs: Vital Signs Temperature 97.8 F 02/03/18 05:00 Pulse Rate 78 02/03/18 05:00 Respiratory Rate 18 02/03/18 05:00 Blood Pressure 126/62 02/03/18 05:00 O2 Sat by Pulse Oximetry (%) 99 02/02/18 21:00 Constitutional: Yes: Well Nourished, No Distress, Anxious Eyes: Yes: Conjunctiva Clear, EOM Intact, Other (Blepharospasm) HENT: Yes: Atraumatic, Normocephalic Neck: Yes: Supple, Trachea Midline Cardiovascular: Yes: Regular Rate and Rhythm. No: Bradycardia, Tachycardia Respiratory: Yes: Regular Gastrointestinal: Yes: Normal Bowel Sounds, Soft Renal/: No: Anuria, Bladder Distention Breast(s): Yes: WNL Musculoskeletal: Yes: WNL Extremities: No: Calf Tenderness, Cold, Cyanosis Edema: No Integumentary: Yes: WNL Neurological: Yes: Alert, Oriented. No: Aphasia, Asterixis, Ataxia, Dysarthria , Lethargy, Seizure, Tremors, Unresponsive, Unsteady Gait, Weakness ...Motor Strength: WNL Psychiatric: Yes: WNL Labs: CBC, BMP 02/01/18 05:30 02/01/18 05:30 Discharge Summary Reason For Visit: SYNCOPE AND COLLAPSE Current Active Problems Syncope and collapse (Acute) - Instructions Referrals: Mervin Perkins MD [Primary Care Provider] - - Home Medications Comprehensive Discharge Medication List: Ambulatory Orders Albuterol Sulfate Inhaler - [Ventolin HFA Inhaler -] 1 - 2 inh PO QID 01/31/18 Atorvastatin Ca [Lipitor] 20 mg PO HS 01/31/18 Cholecalciferol (Vitamin D3) [Vitamin D3] 1,000 unit PO DAILY 01/31/18 Fluticasone Prop 0.05% Nasal [Flonase -] 1 - 2 spray NS DAILY 01/31/18 Metoprolol Tartrate 25 mg PO DAILY 01/31/18 Multivit-Min/FA/Lycopen/Lutein [Centrum Silver Tablet] 1 each PO DAILY 01/31/18 Ranitidine HCl [Zantac] 300 mg PO BID 01/31/18
[2018-02-03 07:48] VITALS: BP 123/81; PULSE 87; TEMP 97.4
[2018-02-03 08:50] LABS: BASO % 0.6 % (0-2.0); EOS % 3.8 % (0-4.5); HEMATOCRIT 41.8 % (32.4-45.2); HEMOGLOBIN 14.6 GM/dL (10.7-15.3); LYMPH % 22.7 % (8-40); MCHC 35.1 g/dl (32.0-36.0); MEAN CELL VOLUME 91.4 fl (80-96); MEAN PLT VOLUME 8.5 fl (7.5-11.1); NEUT % 65.9 % (42.8-82.8); PLATELET COUNT 245 K/MM3 (134-434); RBC 4.57 M/mm3 (3.60-5.2); RDW 13.6 % (11.6-15.6); WHITE BLOOD COUNT 7.9 K/mm3 (4.0-10.0)
[2018-02-03 09:12] LABS: ALBUMIN 3.9 g/dl (3.4-5.0); ALK PHOS 79 U/L (45-117); ANION GAP 11 MMOL/L (8-16); BILIRUBIN,TOTAL 0.8 mg/dL (0.2-1); BLOOD UREA NITROGEN 11 mg/dL (7-18); CALCIUM 9.2 mg/dL (8.5-10.1); CHLORIDE 104 mmol/L (98-107); CO2 24 mmol/L (21-32); CREATININE 0.6 mg/dL (0.55-1.3); GLUCOSE,RANDOM 135 mg/dL (74-106); POTASSIUM 3.7 mmol/L (3.5-5.1); SGOT/AST 28 U/L (15-37); SGPT/ALT 42 U/L (13-61); SODIUM 138 mmol/L (136-145); TOT PROT 6.8 g/dl (6.4-8.2)
[2018-02-03] MEDS: DOCUSATE SODIUM 100 MG CAPSULE (FP) PO SCH (10:13)
[2018-02-03] MEDS: CHOLECALCIFEROL (VITAMIN D3) 1,000 UNIT TABLET (FP) PO SCH (10:13)
[2018-02-03] MEDS: amLODIPine BESYLATE 5 MG TABLET (FP) PO SCH (10:13)
[2018-02-03] MEDS: FLUTICASONE PROP 0.05% 16 GM NASAL SPRAY NS SCH (10:14)
[2018-02-03] MEDS: LIDOCAINE 5% TOPICAL PATCH TP SCH (10:14)
[2018-02-03] MEDS: IBUPROFEN 200 MG TABLET PO PRN (10:15)
--- NOTE | 2018-02-03 11:39 | ECHO ---
Name: IRLANDA ANN Exam:Adult Echocardiogram Study Date: 02/03/2018 08:19 AM Age: 72 yrs Reason For Study: SYNCOPE Height: 65 in Weight: 170 lb BSA: 1.8 m2 MMode/2D Measurements & Calculations IVSd: 0.77 cm Ao root diam: 2.8 cm LVIDd: 4.6 cm LA dimension: 2.6 cm LVIDs: 3.1 cm LVPWd: 0.63 cm EDV(Teich): 99.8 ml ESV(Teich): 38.8 ml Doppler Measurements & Calculations MV E max adolfo: 47.9 cm/sec Med Peak E' Adolfo: 9.2 cm/sec MV A max adolfo: 76.0 cm/sec Med E/e': 5.2 MV E/A: 0.63 Lat Peak E' Adolfo: 10.4 cm/sec Lat E/e': 4.6 Procedure A complete two-dimensional transthoracic echocardiogram was performed (2D, M-mode, Doppler and color flow Doppler). Left Ventricle The left ventricle is normal in size. Left ventricular systolic function is normal. Ejection Fraction = 65- 70%. No regional wall motion abnormalities noted. Right Ventricle The right ventricle is normal size. The right ventricular systolic function is normal. Atria The left atrial size is normal. Right atrial size is normal. Mitral Valve The mitral valve is normal in structure and function. There is mild mitral regurgitation. Tricuspid Valve The tricuspid valve is normal in structure and function. No tricuspid regurgitation. Aortic Valve The aortic valve is normal in structure and function. No aortic regurgitation is present. Pulmonic Valve The pulmonic valve is not well visualized. Great Vessels The aortic root is normal size. Pericardium/Pleura There is no pericardial effusion. Interpretation Summary The left ventricle is normal in size. Left ventricular systolic function is normal. No regional wall motion abnormalities noted. Ejection Fraction = 65-70%. The right ventricular systolic function is normal. The left atrial size is normal. Right atrial size is normal. There is mild mitral regurgitation. There is no pericardial effusion. Previous study is not available for comparison Pepe Obrien MD 02/03/2018 11:38 AM
--- NOTE | 2018-02-03 18:01 | PN ---
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 She denies any other history. She presents to the ED today with a syncope and collapse in her home while using the bathroom this morning. Patient reports at approximately 0130 today she went to use the bathroom today to urinate. She felt lightheaded and "broke out into a sweat" and woke up on the bathroom floor. She crawled back to her bedroom and managed to get into her bed. At 0430 a.m., she again went to use the bathroom but started again to feel dizzy and went back to her bedroom immediately, she called her daughter and was brought into the ED. Patient states she has bilateral lower extremity weakness for the past year. She denies fevers, chills, nausea vomiting, diarrhea, or other symptoms. ER course was notable for: (1) lumbar spine xray - no evidence of deformity (2) head ct, no evidence of ICH (3) trop negative x 1, trend 2 more (4) ekg nsr left anterior fas block - Objective Vital Signs: Vital Signs Temperature 97.4 F L 02/03/18 07:47 Pulse Rate 87 02/03/18 07:47 Respiratory Rate 17 02/03/18 07:47 Blood Pressure 123/81 02/03/18 07:47 O2 Sat by Pulse Oximetry (%) 99 02/03/18 07:47 Eyes: Yes: WNL, Conjunctiva Clear, EOM Intact HENT: Yes: WNL, Atraumatic, Normocephalic Neck: Yes: WNL, Supple, Trachea Midline Cardiovascular: Yes: WNL, Regular Rate and Rhythm Respiratory: Yes: WNL, Regular, CTA Bilaterally Gastrointestinal: Yes: WNL, Normal Bowel Sounds Genitourinary: Yes: WNL Musculoskeletal: Yes: WNL Extremities: Yes: WNL Edema: No Integumentary: Yes: WNL Neurological: Yes: WNL, Alert, Oriented ...Motor Strength: WNL Psychiatric: Yes: WNL Labs: CBC, BMP 02/03/18 08:20 02/03/18 08:20 INR, PTT INR 1.13 (0.83-1.09) H 01/31/18 08:37 Problem List - Problems (1) Syncope and collapse Code(s): R55 - SYNCOPE AND COLLAPSE Assessment/Plan micturition syncope cva dysarthria left anterior fascicular block bp stable on amlodipine 5 qd Plan echo telemetry d/c metoprolol neurology consult appreciated.
== END 2018-02-03 12:18 | disposition home or self-care (01) | DRG 312 ==
LOC: JER 07:54 → JERBED 08:53 → J4W 15:26
PROVIDERS: ADMIT Internal Medicine; ATTEND Internal Medicine
DX: R55 Syncope and collapse (principal); I10 Essential (primary) hypertension; J44.9 Chronic obstructive pulmonary disease, unspecified; K21.9 Gastro-esophageal reflux disease without esophagitis; I69.349 Monoplegia of lower limb following cerebral infarction affecting unspecified side; G25.81 Restless legs syndrome; I44.4 Left anterior fascicular block; R47.1 Dysarthria and anarthria; T42.6X5A Adverse effect of other antiepileptic and sedative-hypnotic drugs, initial encounter
CPT/HCPCS: 36415; 70450-TC; 70551-TC; 71046-TC-FY; 72100-TC-FY; 72125-TC; 80053; 80061; 81003; 82550; 82553; 83036; 83721; 83735; 84100; 84443; 84484; 85025; 85610; 87040; 87086; 93005; 93010; 93306-TC; 93880-TC; 97116-GP; 97161-GP; 99285-25

== ENCOUNTER 2018-04-29 19:38 | Emergency (ER) | payer OTHER, MEDICARE ==
[2018-04-29] MEDS ORDERED: ACETAMINOPHEN 325 MG TABLET (FP) PO ONE (19:55)
--- NOTE | 2018-04-29 19:55 | PDOC ---
Rapid Medical Evaluation Medical Evaluation: Allergies Allergy/AdvReac Type Severity Reaction Status Date / Time No Known Allergies Allergy Verified 01/31/18 08:24 I have performed a brief in-person evaluation of this patient. The patient presents with a chief complaint of: s/p lost balance and tripped while going up the stairs around 5:30-6 PM today, patient fell on R side; no LOC , no head trauma, c/o R shoulder pain Pertinent physical exam findings: Few abrasions noted to BUE, pain with movement of R shoulder, no joint deformity I have ordered the following: R shoulder xray, tylenol The patient will proceed to the ED for further evaluation. 04/29/18 19:49
[2018-04-29 20:01] VITALS: BP 154/99; PULSE 96; TEMP 97.8; BMI 27.4
--- NOTE | 2018-04-29 21:33 | PDOC ---
History of Present Illness - General History Source: Patient, Family Exam Limitations: No Limitations - History of Present Illness Initial Comments: 04/29/18 22:16 The patient is a 72 year old female with a significant past medical history of arthritis, hypertension, GERD, and CVA who presents to the emergency department with shoulder and arm pain s/p injury earlier this evening. The patient reports that she was at home earlier today walking up the stairs when she fell back from the third step to the top. The patient states that she attempted to skip a step and then fell. The patient denies any head injury , loc, dizziness or weakness. The patient reports associated right arm and shoulder pain secondary to fall. The patient states that she was able to get up after her fall and call her daughter. The patient denies any chest pain, belly pain. She denies any other symptoms or complaints. <Iva Barnes - Last Filed: 04/29/18 22:16> <Rita Og - Last Filed: 04/29/18 23:15> - General Chief Complaint: Injury Stated Complaint: FALL / SHOULDER PAIN Time Seen by Provider: 04/29/18 19:49 Past History <Iva Barnes - Last Filed: 04/29/18 22:16> - Past Medical History CVA: Yes (slowed speech residual) COPD: Yes (non-O2 dep) HTN: Yes Hypercholesterolemia: Yes - Immunization History Immunization Up to Date: Yes - Suicide/Smoking/Psychosocial Hx Smoking History: Former smoker Have you smoked in the past 12 months: No If you are a former smoker, when did you quit?: 42 years ago Information on smoking cessation initiated: No Hx Alcohol Use: No Drug/Substance Use Hx: No Substance Use Type: None <Rita Og - Last Filed: 04/29/18 23:15> - Past Medical History Allergies/Adverse Reactions: Allergies Allergy/AdvReac Type Severity Reaction Status Date / Time No Known Allergies Allergy Verified 04/29/18 19:50 Home Medications: Ambulatory Orders Albuterol Sulfate Inhaler - [Ventolin HFA Inhaler -] 1 - 2 inh PO QID 01/31/18 Atorvastatin Ca [Lipitor] 20 mg PO HS 01/31/18 Cholecalciferol (Vitamin D3) [Vitamin D3] 1,000 unit PO DAILY 01/31/18 Fluticasone Prop 0.05% Nasal [Flonase -] 1 - 2 spray NS DAILY 01/31/18 Metoprolol Tartrate 25 mg PO DAILY 01/31/18 Multivit-Min/FA/Lycopen/Lutein [Centrum Silver Tablet] 1 each PO DAILY 01/31/18 Ranitidine HCl [Zantac] 300 mg PO BID 01/31/18 Review of Systems - Review of Systems Able to Perform ROS?: Yes Comments:: 04/29/18 22:16 GENERAL/CONSTITUTIONAL: No fever or chills. No weakness. HEAD, EYES, EARS, NOSE AND THROAT: No change in vision. No ear pain or discharge. No sore throat. GASTROINTESTINAL: No nausea, vomiting, diarrhea or constipation. GENITOURINARY: No dysuria, frequency, or change in urination. CARDIOVASCULAR: No chest pain or shortness of breath. RESPIRATORY: No cough, wheezing, or hemoptysis. MUSCULOSKELETAL: (+)right arm and shoulder pain No joint or muscle swelling or pain. No neck or back pain. SKIN: No rash NEUROLOGIC: No headache, vertigo, loss of consciousness, or change in strength/ sensation. ENDOCRINE: No increased thirst. No abnormal weight change. HEMATOLOGIC/LYMPHATIC: No anemia, easy bleeding, or history of blood clots. ALLERGIC/IMMUNOLOGIC: No hives or skin allergy. <Iva Barnes - Last Filed: 04/29/18 22:16> *Physical Exam - Vital Signs Last Vital Signs Temp Pulse Resp BP Pulse Ox 97.8 F 96 H 20 154/99 99 04/29/18 19:50 04/29/18 19:50 04/29/18 19:50 04/29/18 19:50 04/29/18 19:50 - Physical Exam Comments: 04/29/18 22:16 GENERAL: Awake, in no acute distress HEAD: No signs of trauma EYES: PERRLA, EOMI, sclera anicteric, conjunctiva clear, visual acuity grossly intact ENT: Auricles normal inspection, hearing grossly normal, nares patent, oropharynx clear without exudates. Moist mucosa NECK: Normal ROM, supple, no lymphadenopathy, JVD, or masses LUNGS: Breath sounds equal, clear to auscultation bilaterally. No wheezes, and no crackles. Normal work of breathing. HEART: Regular rate and rhythm, normal S1 and S2, no murmurs, rubs or gallops ABDOMEN: Soft, nontender, normoactive bowel sounds. No guarding, no rebound. No masses. Non-distended. CHEST WALL: BACK: No midline tenderness. EXTREMITIES: (+)abrasion to dorsum of left hand , contusion to lateral aspect of right forearm Normal range of motion, no edema. No clubbing or cyanosis. No erythema, or tenderness NEUROLOGICAL: Alert, and fully oriented x4, Cranial nerves II through XII grossly intact. Normal speech, normal gait. DTRs 2/4 bilaterally. SKIN: Warm, Dry, normal turgor, no rashes or lesions noted. <Iva Barnes - Last Filed: 04/29/18 22:16> - Vital Signs Last Vital Signs Temp Pulse Resp BP Pulse Ox 97.8 F 96 H 20 154/99 99 04/29/18 19:50 04/29/18 19:50 04/29/18 19:50 04/29/18 19:50 04/29/18 19:50 <Rita Og - Last Filed: 04/29/18 23:15> Moderate Sedation - Procedure Monitoring Vital Signs: Procedure Monitoring Vital Signs Temperature 97.8 F 04/29/18 19:50 Pulse Rate 96 H 04/29/18 19:50 Respiratory Rate 20 04/29/18 19:50 Blood Pressure 154/99 04/29/18 19:50 O2 Sat by Pulse Oximetry (%) 99 04/29/18 19:50 <Iva Barnes - Last Filed: 04/29/18 22:16> - Procedure Monitoring Vital Signs: Procedure Monitoring Vital Signs Temperature 97.8 F 04/29/18 19:50 Pulse Rate 96 H 04/29/18 19:50 Respiratory Rate 20 04/29/18 19:50 Blood Pressure 154/99 04/29/18 19:50 O2 Sat by Pulse Oximetry (%) 99 04/29/18 19:50 <Rita Og - Last Filed: 04/29/18 23:15> ED Treatment Course - RADIOLOGY Radiology Studies Ordered: 04/29/18 22:58 X-rays of the right humerus forearm and shoulder reveal no obvious fracture or deformity CT scan of the brain showed no acute abnormality <Rita Og - Last Filed: 04/29/18 23:15> *DC/Admit/Observation/Transfer - Attestations Scribe Attestion: 04/29/18 22:16 Documentation prepared by Iva Barnes, acting as medical support assistant for Rita Og DO, MD. <Iva Barnes - Last Filed: 04/29/18 22:16> - Discharge Dispostion Decision to Admit order: No <Rita Og - Last Filed: 04/29/18 23:15> Diagnosis at time of Disposition: Multiple contusions, Strain of upper arm, right, Fall (on) (from) other stairs and steps, initial encounter - Discharge Dispostion Disposition: HOME Condition at time of disposition: Stable - Referrals Referrals: Mervin Perkins MD [Primary Care Provider] - Timothy Alexis MD [Staff Physician] - - Patient Instructions Printed Discharge Instructions: How to Use a Sling, Easy Bruising (Alternative Therapy), How to Prevent Falls - Post Discharge Activity
[2018-04-29] MEDS ORDERED: ACETAMINOPHEN 325 MG TABLET (FP) ONE (22:07)
== END 2018-04-29 23:55 | disposition home or self-care (01) ==
LOC: JER 19:38
DX: S46.811A Strain of other muscles, fascia and tendons at shoulder and upper arm level, right arm, initial encounter (principal); S40.021A Contusion of right upper arm, initial encounter; W10.8XXA Fall (on) (from) other stairs and steps, initial encounter; Y93.89 Activity, other specified; Y99.8 Other external cause status; Y92.018 Other place in single-family (private) house as the place of occurrence of the external cause; I10 Essential (primary) hypertension; K21.9 Gastro-esophageal reflux disease without esophagitis; M12.9 Arthropathy, unspecified; Z86.73 Personal history of transient ischemic attack (TIA), and cerebral infarction without residual deficits
CPT/HCPCS: 70450-TC; 72125-TC; 73030-TC-RT-FY; 73060-TC-RT-FY; 73090-TC-RT-FY; 99281-25